=== PATIENT | male | born 1985 | race Two or more races ===

== ENCOUNTER 2022-05-10 22:06 | Observation (INO) ==
[2022-05-10] MEDS ORDERED: METOCLOPRAMIDE HCL INJ 5 MG/ML 2 ML VIAL IV STA (22:32)
[2022-05-10] MEDS ORDERED: diphenhydrAMINE 50 MG/ML VIAL IV STA (22:32)
[2022-05-10 22:54] LABS: Basophils # (auto) 0.04 K/uL (0-0.2); Basophils % (auto) 0.4 %; Eosinophils # (auto) 0.22 K/uL (0-0.5); Eosinophils % (auto) 2.2 %; Hematocrit (blood only) 44.1 % (42-52); Hemoglobin 16.1 g/dL (14.0-18.0); Immature Granulocytes # (auto) 0.03 K/uL (0.00-0.02); Immature Granulocytes % (auto) 0.3 %; Lymphocytes # (auto) 3.08 K/uL (1.2-3.4); Lymphocytes % (auto) 30.7 %; Mean Corpuscular Hemoglobin 32.9 pg (25-34); Mean Corpuscular Hgb Conc 36.5 g/dL (32-36); Mean Platelet Volume 9.8 fL (7.4-10.4); Monocytes # (auto) 0.39 K/uL (0.11-0.59); Monocytes % (auto) 3.9 %; Neutrophils # (auto) 6.28 K/uL (1.4-6.5); Neutrophils % (auto) 62.5 %; Platelet Count 298 K/uL (130-400); RDW Coefficient of Variation 12.2 % (11.5-14.5); RDW Standard Deviation 40.4 fL (36.4-46.3); White Blood Count 10.04 K/uL (4.8-10.8)
--- NOTE | 2022-05-10 23:23 | Emergency Department Note ---
History of Present Illness General Chief complaint: Headache Stated complaint: HEADACHE, INTO BACK OF HEAD Time Seen by Provider: 05/10/22 22:19 History of Present Illness Maximum Pain Intensity: 10 This 36-year-old Wallisian-speaking requesting his friend interpret presents to the ER complaining of new onset headache and an episode of difficulty speaking yesterday with no history of migraines Location: Head Quality: Throbbing Severity: Moderate Duration: Past day Timing: Started yesterday Context: Patient was concerned and came in Modifying factors: better with Tylenol; worse with activity Patient denies prior history of migraines. Patient states when he had a bad hea dache he had difficulty speaking. This is now since improved. No correlation with intercourse. Patient denies numbness, tingling, localized weakness. No family history of aneurysm or sudden . No trauma to the area. Home Medications Medication Instructions Recorded Confirmed Type acetaminophen 325 mg tablet 650 mg PO QID PRN 05/10/22 05/10/22 History (Tylenol) Allergies Allergy/AdvReac Type Severity Reaction Status Date / Time No Known Allergies Allergy Unverified 05/10/22 22:59 Past Med/Surg History Medical History No acute medical problems No pertinent family history Surgical History No pertinent past surgical history Social History Smoking Status: Never smoker Preferred Language: Azeri Feels Safe at Home: Yes Review of Systems A total of 10 systems reviewed and were otherwise negative Physical Exam Vital Signs Vital Signs - 24 hr 05/10/22 22:10 05/10/22 23:12 Temperature 36.5 C Temperature Source Temporal Artery Scan Pulse Rate 84 Pulse Rate [Apical] 76 Respiratory Rate 18 20 Respiratory Effort / Characteristics Non-Labored Spontaneous Non-Labored Respiratory Depth Normal Normal Respiratory Pattern Regular Blood Pressure 131/82 Blood Pressure [Right Arm] 136/86 Blood Pressure Mean 98 Blood Pressure Mean [Right Arm] 102 Blood Pressure Position Sitting Blood Pressure Position [Right Arm] Lying Pulse Oximetry 98 97 Oxygen Delivery Method Room Air Room Air Sepsis Recent Fever Within 48 Hours No Sepsis New/Unexplained Change in Mental Status No Sepsis Action Taken by Nursing No Action Required VITALS: Vitals are noted on the nurse's note and reviewed by myself. Vital signs stable. GENERAL: Pleasant male following commands speaking in full sentences, in no acute distress, nondiaphoretic, well-developed well-nourished. SKIN: The skin was without rashes, erythema, edema, or bruising. There is no tenting of the skin. Capillary reflex less than 2 seconds. HEAD: Normocephalic atraumatic. EARS: External auditory canals clear, tympanic membranes pearly mccabe without erythema or effusion bilaterally. EYES: Pupils equal round and reactive to light and accommodation. Conjunctivae without injection, sclerae without icterus. Extraocular movements intact. NOSE: Patent, turbinates without inflammation or discharge. No sinus tenderness. MOUTH: Mucous membranes moist. Pharynx without erythema or exudate. Uvula midline. Airway patent. Tongue does not deviate. NECK: Supple without nuchal rigidity. No lymphadenopathy. No thyromegaly. Cervical spine is nontender. No JVD. HEART: Regular rate and rhythm without murmurs gallops or rubs. LUNGS: Clear to auscultation bilaterally without wheezes, rales or rhonchi. No retractions or accessory muscle use. ABDOMEN: Positive bowel sounds x 4. Normal tympanic percussion. Soft, nontender, without masses or organomegaly. Mariscal sign negative. No guarding or rebound tenderness. No CVA tenderness MUSCULOSKELETAL: No muscle atrophy, erythema, or edema noted. NEURO: Patient was alert and oriented to person place and time. Normal sensation to light and sharp touch. No focal neurological deficits. Nontender over the occipital nerve outflow tracts. Course Administered Medications Discontinued Medications Diphenhydramine HCl (Diphenhydramine 50 Mg/Ml Vial) 25 mg IV NOW STA Stop: 05/10/22 22:33 Last Admin: 05/10/22 22:54 Dose: 25 mg Documented by: [id number] Ioversol (Optiray 320 125ml) 125 ml IV ONCE ONE Stop: 05/11/22 00:09 Last Admin: 05/11/22 00:08 Dose: 118 ml Documented by: [id number] Metoclopramide HCl (Metoclopramide Hcl Inj 5 Mg/Ml 2 Ml Vial) 10 mg IV NOW STA Stop: 05/10/22 22:33 Last Admin: 06/15/22 22:54 Dose: 10 mg Documented by: [id number] Medical Decision Making Medical Records Attestation: I reviewed the patient's medical records. Home Medications Current Medication List: was personally reviewed by me Laboratory Data Attestation: I reviewed the patient's lab results. Result diagrams: 05/10/22 22:44 05/10/22 22:44 Lab Results 05/10/22 05/10/22 05/10/22 Range/Units 22:44 22:44 23:18 WBC 10.04 (4.8-10.8) K/uL RBC 4.90 (4.7-6.1) M/uL Hgb 16.1 (14.0-18.0) g/dL Hct 44.1 (42-52) % MCV 90.0 (80-100) fL MCH 32.9 (25-34) pg MCHC 36.5 H (32-36) g/dL RDW Std Deviation 40.4 (36.4-46.3) fL RDW Coeff of Gaurang 12.2 (11.5-14.5) % Plt Count 298 (130-400) K/uL MPV 9.8 (7.4-10.4) fL Immature Gran % (Auto) 0.3 % Neut % (Auto) 62.5 % Lymph % (Auto) 30.7 % [place] % (Auto) 3.9 % Eos % (Auto) 2.2 % Baso % (Auto) 0.4 % Neut # (Auto) 6.28 (1.4-6.5) K/uL Lymph # (Auto) 3.08 (1.2-3.4) K/uL [place] # (Auto) 0.39 (0.11-0.59) K/uL Eos # (Auto) 0.22 (0-0.5) K/uL Baso # (Auto) 0.04 (0-0.2) K/uL Immature Gran # (Auto) 0.03 H (0.00-0.02) K/uL Sodium 136 (136-145) mmol/L Potassium 3.7 (3.5-5.1) mmol/L Chloride 104 (98-107) mmol/L Carbon Dioxide 25 (21-32) mmol/L Anion Gap 7 (3-11) BUN 12 (6-23) mg/dl Creatinine 0.81 (0.6-1.4) mg/dl Est Cr Clr Drug Dosing 123.7 ml/min Est GFR ( Amer) 130.7 ml/min Est GFR (Non-Af Amer) 112.7 ml/min BUN/Creatinine Ratio 14.8 (10-20) Glucose 119 H (70-99(Fasting)) mg/dl Calcium 8.9 (8.5-10.1) mg/dl Magnesium 2.1 (1.7-2.4) mg/dl Total Bilirubin 0.5 (0.2-1.0) mg/dl AST 54 H (13-39) U/L ALT 59 H (7-52) U/L Alkaline Phosphatase 69 (34-104) U/L Total Protein 7.8 (6.0-8.3) gm/dl Albumin 4.6 (3.4-5.0) gm/dl Globulin 3.2 (2.5-4.0) gm/dl Albumin/Globulin Ratio 1.4 (0.9-2) SARS-CoV-2 (PCR) NEGATIVE (Negative) Influenza Type A (PCR) Negative (Neg) Influenza Type B (PCR) Negative (Neg) RSV (RT-PCR) Negative (Neg) Imaging Data Attestation: I personally reviewed and interpreted this imaging study as follows: MDM Narrative Prior records/ancillary studies reviewed. Additional history obtained from friends and . Triage Nursing notes reviewed. The patient's history was concerning for headache. Differential diagnosis: Etiologies such as migraine headache, meningitis, sinusitis, CO exposure, ICH, SAH, infection, tumor, headache, sinus thrombosis, arterial dissection, as well as others were entertained. Physical examination findings: As above. Non-focal. ER treatment provided: Reglan, Benadryl On reassessment the patient felt better. Diagnostics interpreted by me: NIH: 0 The labs revealed No worrisome leukocytosis, mildly elevated LFTs. Patient is advised to follow-up with the family care doctor for this. He denies heavy alcohol use. Negative COVID Imaging studies: Preliminary Findings Only See Final Report For Complete Findings CT HEAD: No evidence of acute intracranial pathology. No comparisons. Radiologist: Edyta Jimenez MD ADDENDUM - Added by Edyta Jimenez MD on 05/11/2022 12:58 AM (-07:00) CTA HEAD: There is occlusion of the distal vertebral artery segment. The dominant left vertebral artery and basilar arteries are widely patent. The posterior inferior, superior cerebellar, and internal carotid, middle cerebral and anterior cerebral arteries are normal. There is a normal left posterior tumor can artery. 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 No comparisons. Radiologist: Edyta Jimenez MD Study ready at 00:20 and initial results transmitted at 00:57 Communications: Clear Time Type Notes Verify Receipt Addendum CTA NECK: There is occlusion of the distal right vertebral artery segment. The dominant left vertebral artery and basilar artery are widely patent. The visualized anterior circulation is normal. No comparisons. Radiologist: Edyta Jimenez MD Consultation: A consultation was placed with the hospitalist. The case was discussed and diagnostics were reviewed. The patient was evaluated in the ER for further treatment. This appears to be consistent with headache With abnormal CTA finding.. Patient was neurovascularly and neurologically intact. Medicine was consulted. He will be evaluated for admission. By the evaluation outlined above emergent etiologies such as meningitis, sinusitis, CO exposure, ICH, SAH, infection, temporal arteritis, tumor, sinus thrombosis, arterial dissection, as well as others were deemed relatively unlikely. The pt informed about the findings as listed above. All questions were answered and pleased with the treatment. The chart was completed utilizing mPATH voice recognition software. Grammatical errors, random word insertions, pronoun errors, and incomplete sentences are an occassional consequence of this system due to software limitations, ambient noise, and hardware issues. Any formal questions or concerns about the content, text, or information contained within the body of this dictation should be directly addressed to the physician certified pharmacist assistant for clarification. Impression & Plan Headache, Occlusion of vertebral artery Discharge Plan Visit Data Chief Complaint: Headache Stated Complaint: HEADACHE, INTO BACK OF HEAD ED Provider: Rogelio Sanchez ED Midlevel Provider: Tammie Coronel Discharge Problem: Headache, Occlusion of vertebral artery Patient Disposition: Admitted As Inpatient Condition: Good Forms Stand Alone Forms: [employer] Prescriptions Prescriptions: No Action acetaminophen [Tylenol] 325 mg Tablet 650 mg PO QID PRN (Reason: Pain) RF: 0 Referrals Referrals: PCP,NO [Primary Care Provider] - Discharge Problem: Headache Qualifiers: Headache type: unspecified Headache chronicity pattern: acute headache Intractability: not intractable Qualified Code(s): R51.9 - Headache, unspecified
[2022-05-10 23:33] LABS: BUN Creatinine Ratio 14.8 (10-20); Calcium 8.9 mg/dl (8.5-10.1); Creatinine Clr Calc Pharmacy 123.7 ml/min; Est GFR (African American) 130.7 ml/min; Est GFR (Non-African American) 112.7 ml/min; Potassium 3.7 mmol/L (3.5-5.1)
[2022-05-10 23:55] LABS: Albumin Globulin Ratio 1.4 (0.9-2); Albumin Level 4.6 gm/dl (3.4-5.0); Bilirubin,Total 0.5 mg/dl (0.2-1.0); Globulin 3.2 gm/dl (2.5-4.0); Magnesium 2.1 mg/dl (1.7-2.4); Total Protein 7.8 gm/dl (6.0-8.3)
[2022-05-11 00:01] LABS: Influenza A virus by PCR Negative (Neg); Influenza B virus by PCR Negative (Neg); RSV by PCR Negative (Neg); SARS CoV2 RNA(COVID-19) InHosp NEGATIVE (Negative)
[2022-05-11] MEDS ORDERED: OPTIRAY 320 125ml IV ONE (00:08)
--- NOTE | 2022-05-11 02:08 | History & Physical Report ---
Date of Service May 11, 2022 Assessment & Plan (1) Headache: Plan: Jl Lopez is a 36-year-old male with no known past medical history who present today due to headaches for one day. Headaches with episode of speech difficulty - Ddx including complex migraine vs TIA vs stroke - CTA H/N showing occlusion of distal vertebral artery segment; CT head without evidence of acute intracranial pathology - Will order lipid profile, A1c for risk reduction - MRI Brain to definitively rule out stroke - Neuro checks q2h - Can consider Neuro consult Problem drinking - Patient denies issues with alcohol use but was brought to ED due to alcohol intoxication in the past - Concern for episodes of bingeing and whether patient is being entirely truthful about amount of alcohol consumption on a daily basis - Will order at-risk AWSS protocol with Ativan PRN DVT ppx: SCDs, no chemoppx indicated Diet: Heart healthy Dispo: Observation to med tele CODE STATUS: Full (2) Occlusion of vertebral artery: (3) Problem drinking: History of Present Illness Primary Care Provider: NO PCP Jl Lopez is a 36-year-old male with no known past medical history who present today due to headaches since yesterday. The patient is Swedish-speaking only and I conducted the interview in Swedish with his and friend at bedside. He reports that starting yesterday he had severe headaches, up to about 7/10 in intensity. This was accompanied by an episode of difficulty speaking when the headache was at its worst. He did take Tylenol, which improved the severity fo his headache and his speech difficulty did improve as well. While the headaches have recurred intermittently since yesterday, his speech difficulty has not. He denies any n/v, weakness, numbness, confusion, CP, palp, cough, SOB, abd pain, fever, chills, joint aches, muscle aches, rashes, sick contacts. Does state that he drinks regularly and amounts can vary -- sometimes one drink and sometimes can have up to 12 beers in one night. Denies any such bingeing recently but did say he has had a drink or two in the past few days. In the ED, patient had CT head with no acute intracranial abnormality. CTA H/N did show: Occlusion of distal vertebral artery segment. The dominant left vertebral artery and basilar arteries are widely patent. The posterior inferior, superior cerebellar, and internal carotid, middle cerebral and anterior cerebral arteries are normal. There is a normal left posterior tumor can artery. 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 Lab work showed mild AST and ALT elevations to 54 and 59 respectively but was otherwise unremarkable. He did receive Reglan 10mg IV x1 and diphenhydramine 25mg IV x1, which resolved his MUÑOZ in the ED. Allergies Allergy/AdvReac Type Severity Reaction Status Date / Time No Known Allergies Allergy Unverified 05/10/22 22:59 Home Medications Medication Instructions Recorded Confirmed Type acetaminophen 325 mg tablet 650 mg PO QID PRN 05/10/22 05/10/22 History (Tylenol) atorvastatin 10 mg tablet 10 mg PO DAILY #30 tab 05/11/22 Rx Past Med/Surg History Medical History No acute medical problems No pertinent family history Surgical History No pertinent past surgical history Social History Smoking Status: Never smoker Second Hand Exposure: No; Hx Alcohol Use: Yes Alcohol type: other Preferred Language: Swedish Communication Ability: Effective Communication Tools: Other Loan Assistant Required: Yes Beliefs That Will Affect Care: None Current Living Situation: Spouse Feels Safe at Home: Yes Review of Systems Review of Systems: All systems reviewed & are unremarkable except as noted in HPI & below Physical Exam Physical Exam: GENERAL: A&Ox3. NAD. HEENT: PERRL, EOMI. Moist mucous membranes. NECK: No JVD. No lymphadenopathy. CHEST/LUNGS: CTAB A/P. No crackles, wheezes, rales, ronchi. HEART: RRR. No m/g/r. No carotid bruits. ABDOMEN: NT/ND, soft. BS+ x4 EXTREMITIES: No cyanosis, no clubbing, no edema SKIN: Warm and dry. No rashes or lesions. PSYCHIATRIC: Euthymic affect, no SI, no pressured speech, no hallucinations NEUROLOGIC: The patient has 5/5 strength x4 extremities. Sensation intact. DTR 2+ in all four extremities. CN II-XII intact. Results & Data Results & Data ([facility]) Vital Signs (Past 12 Hours) Vital Signs Temp Pulse Pulse Resp BP BP Pulse Ox 05/11/22 01:28 80 18 132/87 98 05/10/22 23:12 76 20 136/86 97 05/10/22 22:10 36.5 C 84 18 131/82 98 Code Status & VTE Plan VTE Prophylaxis Plan VTE Prophylaxis will be ordered: Yes Supervising Physician Co-Signing Physician Notes Patient seen and examined, chart reviewed, case discussed with Dr. Silvano Gaines and I agree with the assessment and plan as above. In brief, patient is a 36yo male presenting with headache. CTA with vertebral artery occlusion. Exam unremarkable. No neurological deficits +S1/S2, regular, no m/r/g Lungs CTA Abd soft, NT/ND Labs and images reviewed Assessment/Plan -MRI brain -Neuro checks -Check lipids and A1C -Remainder as above Resident Activity Tracking Resident Involvement: Resident Care Provided Care Provided: Adult Hospital Medicine (1) Headache Headache chronicity pattern: acute headache Headache type: unspecified Intractability: not intractable Qualified Code(s): R51.9 - Headache, unspecified
[2022-05-11] MEDS ORDERED: GADOBUTROL 65ML VIAL IV ONE (03:50)
[2022-05-11] MEDS ORDERED: LORazepam 1 MG TAB PO PRN (04:05)
[2022-05-11] MEDS ORDERED: ACETAMINOPHEN 325 MG TAB PO PRN (04:05)
[2022-05-11] MEDS ORDERED: ONDANSETRON INJ 2 MG/ML 2 ML VIAL IV PRN (04:05)
[2022-05-11 05:54] LABS: Chol HDL Ratio 5.2 (0-5)
[2022-05-11 07:06] LABS: Estimated Average Glucose 114 mg/dl; Hemoglobin A1C 5.6 % (4.5-5.6)
--- NOTE | 2022-05-11 07:22 | CT Scan Report ---
CT SCAN OF THE BRAIN WITHOUT IV CONTRAST CLINICAL HISTORY: Strokelike symptoms. COMPARISON STUDY: No priors. TECHNIQUE: Unenhanced axial CT scan of the brain is performed from the vertex to the skull base. A d ose lowering technique was utilized adhering to the principles of ALARA. FINDINGS: Brain parenchyma: The brain parenchyma is normal in appearance. There is no hemorrhage, mass effect, or evidence of acute territorial ischemia by CT criteria. Luevano-white matter differentiation is preser ladan. No extra-axial fluid collection is seen. Ventricles, sulci, cisterns: Normal in configuration. Intracranial vasculature: The visualized intracranial vasculature at the skull base is normal in appe arance. Calvarium: Unremarkable. Sinuses and mastoids: The visualized paranasal sinuses are clear. The mastoid air cells are well pneu matized. Orbits: The bony orbits are grossly intact. IMPRESSION: No acute intracranial abnormality. ACT 112: Negative or not required by law. Electronically signed by: Terrell Merino M.D. 05/11/2022 7:21 AM
--- NOTE | 2022-05-11 07:29 | CT Scan Report ---
CT angio head w con CLINICAL HISTORY: Stroke Like Symptoms . Posterior right head pain with weakness going down the right side. COMPARISON STUDY: CT brain without contrast from 05/10/2022 CT DOSE: TECHNIQUE: CT Angio of the brain was performed.followed by image post processing with coronal, and s agittal MIP reformats. Contrast Volume: Optiray 320, 118 ml FINDINGS: Vascular findings: There is normal enhancement within the internal carotid arteries bilaterally. The re is normal enhancement noted within the anterior, middle and posterior cerebral arteries. There is absence/occlusion of the right vertebral artery. There is a dominant left vertebral artery l eading to the basilar artery. Findings are most likely congenital in nature. Nonvascular findings: There is homogeneous attenuation of the brain parenchyma bilaterally. There is no evidence for an acute infarct or cerebral edema. IMPRESSION: 1. 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 2. There is a dominant left vertebral artery and normal basilar artery. 3. Otherwise, negative CTA of the brain. ACT 112: Negative or not required by law. Electronically signed by: Ernesto Harrison M.D. 05/11/2022 7:27 AM
--- NOTE | 2022-05-11 07:29 | Magnetic Resonance Report ---
MRI OF THE BRAIN COMBO CLINICAL HISTORY: Headache. Stroke like symptoms. COMPARISON STUDY: CT of the brain dated 05/10/2022. TECHNIQUE: MRI of the brain was performed utilizing various T1 and T2-weighted sequences in the axial , sagittal, and coronal planes. Contrast-enhanced sequences were acquired following the administratio n of 8 cc of Gadavist. FINDINGS: Brain parenchyma: The brain parenchyma is normal in appearance. There is no hemorrhage or mass effect . There is no restricted diffusion to suggest acute ischemia. No enhancing mass lesion is identified on the postcontrast images. Luevano-white matter differentiation is preserved. No extra-axial fluid david ection is seen. The cerebellar tonsils are normal in configuration. Developmental venous anomaly is i ncidentally noted in the right frontal lobe. Ventricles, sulci, and cisterns: Normal in configuration. Pituitary and sella: Unremarkable. Intracranial vasculature: The right vertebral artery flow-void is diminished at the skull base. The r emaining flow voids are patent. Orbits: The bony orbits are grossly intact. Orbital contents are normal in appearance. Sinuses and mastoids: Clear. Calvarium: Unremarkable. Cervical cord: Partially visualized cervical spinal cord is normal in morphology and signal intensity . IMPRESSION: 1. There is no hemorrhage, enhancing mass, or evidence of acute ischemia. 2. The right vertebral artery flow-void is diminished at the skull base and the vessel is at least pa rtially occluded. This was better assessed on yesterday's CT angiograms. ACT 112: Negative or not required by law. Electronically signed by: Terrell Merino M.D. 05/11/2022 7:28 AM
--- NOTE | 2022-05-11 07:36 | CT Scan Report ---
CT angio neck with con CLINICAL HISTORY: Stroke Like Symptoms . Posterior right head pain with weakness going down the right side. COMPARISON STUDY: CTA of the brain from 05/11/2022 CT DOSE: 1036.31 mGy.cm TECHNIQUE: CT Angio of the neck was performed.followed by image post processing with coronal, and sa gittal MIP reformats.. Stenosis assessment by NASCET criteria. Contrast Volume: Optiray 320, 118 ml FINDINGS: Vascular findings: Right common carotid artery: Patent without significant stenosis. Right internal carotid artery: Patent without significant stenosis. Right vertebral artery: There is a diminutive right vertebral artery when compared to the left. There is then occlusion of the vertebral artery distally at the level of the arch of C1. The presence of a dissection cannot be excluded. This could also possibly be congenital in nature. Left common carotid artery: Patent without significant stenosis. Left internal carotid artery: Patent without significant stenosis. Left vertebral artery: There is a dominant left vertebral artery which fills the basilar artery. The superior cerebellar arteries are symmetric bilaterally. Nonvascular findings: The parotid and submandibular salivary glands appear normal. There is no enlarged cervical adenopathy noted. The airway appears patent. The thyroid gland appears within normal limits. The lung apices ap pear within normal limits. Impression: 1. There is a diminutive right vertebral artery which is occluded at the level of the arch of C1 on t he right. The presence of dissection cannot be excluded. It is also possible that this is congenital in nature. 2. There is an associated dominant left vertebral artery which fills the basilar artery. The superior cerebellar branches of the basilar artery are symmetric. ACT 112: Negative or not required by law. Electronically signed by: Ernesto Harrison M.D. 05/11/2022 7:34 AM
[2022-05-11] MEDS ORDERED: MULTI-VITAMIN INFUSION 10 ML, THIAMINE HCL 100 MG, FOLIC ACID 1 MG in SODIUM CHLORIDE 0... IV ONE (08:15)
--- NOTE | 2022-05-11 09:56 | Neurology Consultation ---
Date of Consultation May 11, 2022 Assessment & Plan (1) Headache: (2) Occlusion of vertebral artery: 36-year-old male with resolved headache and associated word finding difficulty. Intact neurological examination. 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 This vascular finding is likely incidental. No history of strokelike symptoms localizing to the posterior circulation. No history of significant head or neck trauma or neck pain recently. No evidence of acute stroke on MRI. Good collateral flow from the left vertebral artery suggests chronicity of this finding. Patient does endorse a history of rather regular alcohol consumption, at least 5 alcoholic drinks the day prior to symptom onset. Excessive alcohol use may have been a trigger for his recent presentation. I do not have any further specific neurologic recommendations at this time. However, if patient is to be admitted to the Medical Center, would need to monitor for alcohol withdrawal symptoms. I do not see a reason to start aspirin or other antithrombotic medications at this point in time. Patient may need some counseling regarding alcohol consumption. History of Present Illness Reason for Consultation: headache, right vert occlusion Requesting Physician: Luis Alberto Marroquin MD Attending Physician: Vimal Lan MD History of Present Illness The patient is a 36-year old Kittitian-speaking male (drafter civil engineering services utilized) who presented to the emergency department last night for further evaluation of headache and an associated episode of speech difficulty. The patient is asymptomatic this morning. His headache was global and occurred without associated nausea or vomiting. He does not have a known history of migraine or other primary headache disorder. He denied experiencing any other associated neurologic symptoms such as vision loss, diplopia, dysphagia, focal weakness, clumsiness, or sensory loss. He denied any recent head injury or fall, no neck pain. No recent infection, illness, or vaccination. He does endorse a history of regular alcohol consumption and indicated that he consumed probably 5 drinks the day prior. He does not smoke or use chewing tobacco. He denied use of illicit drugs. He is originally from [facility], moved to [place] about 4 years ago, is employed as a business analytics specialist. A CT angiogram of the head and neck was completed which revealed a diminutive right vertebral artery which is occluded at the level of the arch of C1 on the right. A dissection cannot be excluded. The finding could also be congenital. Again, the patient denies any recent fall or neck pain. No history of stroke or TIA. A follow-up brain MRI was completed. The study was negative for acute or subacute stroke, no evidence of hemorrhage. Diminished right vertebral flow void was observed. Allergies Allergy/AdvReac Type Severity Reaction Status Date / Time No Known Allergies Allergy Unverified 05/10/22 22:59 Home Medications Medication Instructions Recorded Confirmed Type acetaminophen 325 mg tablet 650 mg PO QID PRN 05/10/22 05/10/22 History (Tylenol) Patient History Medical History No acute medical problems No pertinent family history Surgical History No pertinent past surgical history Social History Smoking Status: Never smoker Second Hand Exposure: No; Do You Dip or Chew Tobacco: No; Tobacco Cessation Education Requested by Patient: No Hx Alcohol Use: Yes Alcohol type: other Preferred Language: Kittitian Communication Ability: Effective Communication Tools: Other Lead Technical Architect Required: Yes Beliefs That Will Affect Care: None Current Living Situation: Spouse Other Information That Helps Us Care for You: No Feels Safe at Home: Yes Safety Concerns: Feels Safe At This Time and Afraid for Self Review of Systems Constitutional: no fever and no chills Eyes: no blind spots and no diplopia Ear, Nose, Mouth, Throat: no ear pain and no hearing loss Respiratory: no cough and no dyspnea Cardiovascular: no chest pain and no palpitations Gastrointestinal: no constipation and no diarrhea/loose stools Genitourinary: no urinary incontinence or no urinary urgency Musculoskeletal: no muscle weakness and no muscle atrophy Integumentary: no rash and no lesions Neurologic: as per Subjective / HPI Psychiatric: no behavioral changes, no depression, no abnormal sleep pattern and no anxiety Hematologic / Lymphatic: no easy bruising and no lymphadenopathy Exam (Neuro) Constitutional: well developed and well nourished; no acute distress Eyes: normal visual linares by confrontation, PERRL, normal accommodation and EOM intact bilaterally; no fundoscopic abnormality, no nystagmus and no papilledema Cardiovascular: Vessels: normal carotid upstroke; no carotid bruit Neurologic: Oriented to:: Person, Place and Time Memory: Short Term Intact and Remote Intact Attention: Span Intact and Concentration Intact Language: Naming Objects and Repeating Phrases Speech Fluency: negative Dysarthria Speech Aphasia: negative Aphasia Fund of Knowledge: Current Events, Past History and Vocabulary Cranial Nerves: Normal II (Visual linares full to confrontation, visual acuity normal), III, IV, (Pupils equal round reactive to light and accommodation, eye movements normal), V (Facial sensation intact), VII (There is no facial droop or weakness), VIII (Hearing intact), IX, X (Palate elevates to midline), XI (Shoulder shrug intact) and XII (Tongue protrudes to midline) Motor Strength: Normal Lower Extremities and Normal Upper Extremities; negative Pronator Drift Motor Tone: Normal Lower Extremities and Normal Upper Extremities Muscle Bulk/Involuntary Movements: No Involuntary Movements; negative Muscle Atrophy Sensation: Light Touch Intact, Pain/Temperature Intact, Vibration Intact and Proprioception Intact Coordination: Normal; negative Limited Balance, Dysdiadochokinesia, Finger-Nose Abnormal or Heel-Granger Abnormal Deep Tendon Reflexes: Rt Triceps: 2+, Lt Triceps: 2+, Rt Biceps: 2+, Lt Biceps: 2+, Rt Brachioradialis: 2+, Lt Brachioradialis: 2+, Rt Patellar: 2+, Lt Patellar: 2+, Rt Ankle: 2+ and Lt Ankle: 2+ Special Tests: negative Babinski Present Gait: Normal Station and Gait Results & Data ([facility]) Vital Signs (Past 12 Hours) Vital Signs Temp Pulse Pulse Resp BP BP Pulse Ox 05/11/22 07:13 64 18 128/89 99 05/11/22 07:02 36.8 C 72 20 115/76 98 05/11/22 05:00 64 14 121/78 97 05/11/22 04:00 74 20 120/91 97 05/11/22 03:00 73 15 122/75 97 05/11/22 02:00 81 20 121/88 97 05/11/22 01:28 80 18 132/87 98 05/10/22 23:12 76 20 136/86 97 05/10/22 22:10 36.5 C 84 18 131/82 98 Laboratory Results WBC 10.04, hemoglobin 16.1, hematocrit 44.1, MCV 90.0, platelet count 298, sodium 136, potassium 3.7, BUN 12, creatinine 0.81, glucose 119, hemoglobin A1c 5.6, calcium 8.9, magnesium 2.1, AST 54, ALT 59, triglycerides 227, cholesterol 172, LDL 94, VLDL 45, HDL [address] angiography of the head and neck is as described above in the HPI. MRI of th e brain was negative for acute or subacute infarct, and again, as described in the HPI. I reviewed the images as well as the radiologist interpretation of these tests and was able to appreciate these findings. Coding Level of Care Code 19341 Initial In Care Lvl 3 Diagnoses Headache R51.9 Headache chronicity pattern: acute headache Headache type: unspecified Intractability: not intractable Occlusion of vertebral artery I65.09 (1) Headache Headache chronicity pattern: acute headache Headache type: unspecified Intractability: not intractable Qualified Code(s): R51.9 - Headache, unspecified
--- NOTE | 2022-05-11 11:24 | Discharge Summary ---
Date of Service May 11, 2022 Admission HPI Per Admitting Provider Jl Lopez is a 36-year-old male with no known past medical history who present today due to headaches since yesterday. The patient is Brazilian-speaking only and I conducted the interview in Brazilian with his and friend at bedside. He reports that starting yesterday he had severe headaches, up to about 7/10 in intensity. This was accompanied by an episode of difficulty speaking when the headache was at its worst. He did take Tylenol, which improved the severity fo his headache and his speech difficulty did improve as well. While the headaches have recurred intermittently since yesterday, his speech difficulty has not. He denies any n/v, weakness, numbness, confusion, CP, palp, cough, SOB, abd pain, fever, chills, joint aches, muscle aches, rashes, sick contacts. Does state that he drinks regularly and amounts can vary -- sometimes one drink and sometimes can have up to 12 beers in one night. Denies any such bingeing recently but did say he has had a drink or two in the past few days. In the ED, patient had CT head with no acute intracranial abnormality. CTA H/N did show: Occlusion of distal vertebral artery segment. The dominant left vertebral artery and basilar arteries are widely patent. The posterior inferior, superior cerebellar, and internal carotid, middle cerebral and anterior cerebral arteries are normal. There is a normal left posterior tumor can artery. 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 Lab work showed mild AST and ALT elevations to 54 and 59 respectively but was otherwise unremarkable. He did receive Reglan 10mg IV x1 and diphenhydramine 25mg IV x1, which resolved his MUÑOZ in the ED. Admission Exam Per Admitting Provider GENERAL: A&Ox3. NAD. HEENT: PERRL, EOMI. Moist mucous membranes. NECK: No JVD. No lymphadenopathy. CHEST/LUNGS: CTAB A/P. No crackles, wheezes, rales, ronchi. HEART: RRR. No m/g/r. No carotid bruits. ABDOMEN: NT/ND, soft. BS+ x4 EXTREMITIES: No cyanosis, no clubbing, no edema SKIN: Warm and dry. No rashes or lesions. PSYCHIATRIC: Euthymic affect, no SI, no pressured speech, no hallucinations NEUROLOGIC: The patient has 5/5 strength x4 extremities. Sensation intact. DTR 2+ in all four extremities. CN II-XII intact. Principal Diagnosis Headache, word difficulty Discharge Exam Ipad used for wheel borer services for Brazilian speaking patient, wheel borer "Derian" General: WN/WD male sitting in bed, NAD HEENT: atramautic, normocephalic, mmm, trachea midline without deviation Resp: CTAB, no w/c/r, on RA CV: RRR, no m/r/g, no edema GI: +BS, nontender no wood MSK/Neuro: NVI, CN intact grossly, moves extremities, full strength UE/LE bilaterally, DTRs intact, pulses palpable Psych: AOx3, pleasant and cooperative, answering questions appropriately Discharge Data Allergies Allergy/AdvReac Type Severity Reaction Status Date / Time No Known Allergies Allergy Unverified 05/10/22 22:59 Consultations 05/11/22 01:26 ED Decision to Admit Stat 05/11/22 07:55 Consult Neurology Routine Ordered Studies Head CT 05/10/22 22:33 CT SCAN OF THE BRAIN WITHOUT IV CONTRAST CLINICAL HISTORY: Strokelike symptoms. COMPARISON STUDY: No priors. TECHNIQUE: Unenhanced axial CT scan of the brain is performed from the vertex to the skull base. A dose lowering technique was utilized adhering to the principles of ALARA. FINDINGS: Brain parenchyma: The brain parenchyma is normal in appearance. There is no hemorrhage, mass effect, or evidence of acute territorial ischemia by CT criteria. Luevano-white matter differentiation is preserved. No extra-axial fluid collection is seen. Ventricles, sulci, cisterns: Normal in configuration. Intracranial vasculature: The visualized intracranial vasculature at the skull base is normal in appearance. Calvarium: Unremarkable. Sinuses and mastoids: The visualized paranasal sinuses are clear. The mastoid air cells are well pneumatized. Orbits: The bony orbits are grossly intact. IMPRESSION: No acute intracranial abnormality. ACT 112: Negative or not required by law. Electronically signed by: Terrell Merino M.D. 05/11/2022 7:21 AM Head CTA 05/10/22 22:33 CT angio head w con CLINICAL HISTORY: Stroke Like Symptoms . Posterior right head pain with weakness going down the right side. COMPARISON STUDY: CT brain without contrast from 05/10/2022 CT DOSE: TECHNIQUE: CT Angio of the brain was performed.followed by image post processing with coronal, and sagittal MIP reformats. Contrast Volume: Optiray 320, 118 ml FINDINGS: Vascular findings: There is normal enhancement within the internal carotid arteries bilaterally. There is normal enhancement noted within the anterior, middle and posterior cerebral arteries. There is absence/occlusion of the right vertebral artery. There is a dominant left vertebral artery leading to the basilar artery. Findings are most likely congenital in nature. Nonvascular findings: There is homogeneous attenuation of the brain parenchyma bilaterally. There is no evidence for an acute infarct or cerebral edema. IMPRESSION: 1. 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 2. There is a dominant left vertebral artery and normal basilar artery. 3. Otherwise, negative CTA of the brain. ACT 112: Negative or not required by law. Electronically signed by: Ernesto Harrison M.D. 05/11/2022 7:27 AM Neck CTA 05/10/22 22:33 CT angio neck with con CLINICAL HISTORY: Stroke Like Symptoms . Posterior right head pain with weakness going down the right side. COMPARISON STUDY: CTA of the brain from 05/11/2022 CT DOSE: 1036.31 mGy.cm TECHNIQUE: CT Angio of the neck was performed.followed by image post processing with coronal, and sagittal MIP reformats.. Stenosis assessment by NASCET criteria. Contrast Volume: Optiray 320, 118 ml FINDINGS: Vascular findings: Right common carotid artery: Patent without significant stenosis. Right internal carotid artery: Patent without significant stenosis. Right vertebral artery: There is a diminutive right vertebral artery when compared to the left. There is then occlusion of the vertebral artery distally at the level of the arch of C1. The presence of a dissection cannot be excluded. This could also possibly be congenital in nature. Left common carotid artery: Patent without significant stenosis. Left internal carotid artery: Patent without significant stenosis. Left vertebral artery: There is a dominant left vertebral artery which fills the basilar artery. The superior cerebellar arteries are symmetric bilaterally. Nonvascular findings: The parotid and submandibular salivary glands appear normal. There is no enlarged cervical adenopathy noted. The airway appears patent. The thyroid gland appears within normal limits. The lung apices appear within normal limits. Impression: 1. There is a diminutive right vertebral artery which is occluded at the level of the arch of C1 on the right. The presence of dissection cannot be excluded. It is also possible that this is congenital in nature. 2. There is an associated dominant left vertebral artery which fills the basilar artery. The superior cerebellar branches of the basilar artery are symmetric. ACT 112: Negative or not required by law. Electronically signed by: Ernesto Harrison M.D. 05/11/2022 7:34 AM Brain MRI 05/11/22 02:00 MRI OF THE BRAIN COMBO CLINICAL HISTORY: Headache. Stroke like symptoms. COMPARISON STUDY: CT of the brain dated 05/10/2022. TECHNIQUE: MRI of the brain was performed utilizing various T1 and T2-weighted sequences in the axial, sagittal, and coronal planes. Contrast-enhanced sequences were acquired following the administration of 8 cc of Gadavist. FINDINGS: Brain parenchyma: The brain parenchyma is normal in appearance. There is no hemorrhage or mass effect. There is no restricted diffusion to suggest acute ischemia. No enhancing mass lesion is identified on the postcontrast images. Luevano-white matter differentiation is preserved. No extra-axial fluid collection is seen. The cerebellar tonsils are normal in configuration. Developmental venous anomaly is incidentally noted in the right frontal lobe. Ventricles, sulci, and cisterns: Normal in configuration. Pituitary and sella: Unremarkable. Intracranial vasculature: The right vertebral artery flow-void is diminished at the skull base. The remaining flow voids are patent. Orbits: The bony orbits are grossly intact. Orbital contents are normal in appearance. Sinuses and mastoids: Clear. Calvarium: Unremarkable. Cervical cord: Partially visualized cervical spinal cord is normal in morphology and signal intensity. IMPRESSION: 1. There is no hemorrhage, enhancing mass, or evidence of acute ischemia. 2. The right vertebral artery flow-void is diminished at the skull base and the vessel is at least partially occluded. This was better assessed on yesterday's CT angiograms. ACT 112: Negative or not required by law. Electronically signed by: Terrell Merino M.D. 05/11/2022 7:28 AM Hospital Course (1) Headache: (2) Occlusion of vertebral artery: (1) Headache: (2) Occlusion of vertebral artery: (3) Problem drinking: Jl Lopez is a 36-year-old male with no known past medical history who presented due to headaches for one day with reports of difficulty speaking x 1 day drinks 4-5 saunders daily - Ddx including complex migraine vs TIA vs stroke - CTA H/N showing occlusion of distal vertebral artery segment; CT head without evidence of acute intracranial pathology - MRI Brain to definitively rule out stroke -- NEGATIVE, good collateral flow fr om L vertebral artery suggests chronicity of this finding. - Neuro checks q2h ordered Neuro consult -- no acute findings, stable for discharge Resolution of headache with Tylenol/Zofran/Benadryl and Reglan A1c wnl Lipids with elevated TRG/cholesterol not ideal --> discussed with wheel borer and planned atorvastatin 10mg HS at d/c, low sodium diet/dietary modifications and avoidance of alcohol No family hx of CO/CVA per discussion with wheel borer/patient Rec BP monitoring at home/f/U CVIM for continued monitoring and recs to start HTN agent if elevated in outpatient setting Regarding alcohol Use -- Daily drinker, 4-5 beers daily Denies issues with drinking (but was brought in for alcohol intoxication in the past) AWSS ordered/ativan prn (did not need to use), VSS no tachycardia/fever/etc No evidence for DTs Given banana bag prior to discharge (BP higher elevated prior, 115/76 prior to discharge after hydration )-- Encouraged to cut back on drinking DVT ppx: SCDs, no chemoppx indicated and ambulating in room without issue Wanting to be discharged and no further headache or neurological symptoms at this time and was discharged home. F/u CVIM recommended and # provided Total Time Total Time Spent Total Time Spent (In Minutes): 35 Discharge Plan Discharge Items Patient Disposition: Home - Self-Care Reason For Visit: MUÑOZ W DIFFICULTY SPEAKING Discharge Diagnosis: Headache Condition on Discharge: Good Activity: Resume your previous activity Non-emergency contact: Primary Care Provider Call non-emergency contact if: you have any medication questions, your symptoms worsen and your pain is concerning for you Follow-up/Referrals: [facility],Medicine [Primary Care Provider] - (7-10 days) Diet: Heart Healthy Addtl Attending Provider Instructions: Arabic: You have been hospitalized for a headache. This has been treated with medications to help resolve your issue. Imaging did NOT show any evidence for a stroke and you were seen by Neurology. We would recommend avoiding excessive alcohol as this can cause a headache. You had your A1c checked (to monitor blood sugars) and this was normal. You did have elevations in your triglycerides and cholesterol and you should monitor/adjust your diet to decrease these levels. I did sent a prescription for atorvastatin 10mg daily to take to help decrease these levels at night. You should follow up with primary care in the next 7-10 days to monitor your progress. Please return to the emergency department with any increased symptoms or symptoms concerning for you. You can use Tylenol three times daily as needed for headache but cautious use with ibuprofen while drinking as this could increased risk of bleeding. I would recommend getting a blood pressure cuff and monitoring your blood pressures. If they are still elevated above 160 for the top number or above 70- 80s for the bottom number you may benefit from blood pressure medications as well. Please return to ER with any increased symptoms or symptoms worrying for you. Brazilian: Usted muñoz sido hospitalizado por un dolor de tesfaye. [place] se muñoz tratado con medicamentos para ayudar a resolver villanueva problema. Las imgenes NO mostraron ninguna evidencia de un accidente cerebrovascular y usted fue visto por Neurology. Recomendamos evitar el exceso de alcohol, ya que esto puede causar dolor de tesfaye. Le revisaron la A1c (para controlar el azcar en la manuel) y esto fue normal. Usted tuvo elevaciones en bartolome triglicridos y colesterol y debe monitorear / ajustar villanueva dieta para disminuir estos niveles. Envi deonna receta de atorvastatina 10 mg diarios para louis para ayudar a disminuir estos niveles. Debe hacer un seguimiento con atencin primaria en los prximos 7-10 castro para monitorear villanueva progreso. Recomendara obtener un manguito de presin arterial y controlar villanueva presin arterial. Si todava estn elevados por encima de 160 para el nmero superior o por encima de 70-80 para el nmero inferior, tambin puede beneficiarse de los medicamentos para la presin arterial. Por favor, regrese al departamento de emergencias con cualquier aumento de sntomas o sntomas preocupantes para usted. Puede usar Tylenol jennifer veces al da segn sea necesario para el dolor de tesfaye, lynette use con precaucin con ibuprofeno mientras taran, ya que esto podra aumentar el riesgo de sangrado. Por favor llame a los voluntarios del centro para la medicina para la randi de s eguimiento en [phone] Pending Studies at Discharge: No Stand-Alone Forms: [facility], Smoking Cessation Medications and DC Order Prescriptions: New atorvastatin 10 mg tablet 10 mg PO DAILY Qty: 30 RF: 0 Continued acetaminophen [Tylenol] 325 mg Tablet 650 mg PO QID PRN (Reason: Pain) RF: 0 Discharge Orders: Discharge Order (Routine); Ordered 05/11/22 Ordered By: Renetta Stoddard Admission Data Admit Date/Time: 05/11/22 02:00 Attending Provider: Vimal Lan Admit Provider: Luis Alberto Marroquin Primary Care Provider: [facility],Medicine Other Providers: Vimal Lan ; Geremias Vyas Other Interventions: Discharge Summary Assessment (RN) Last Done: 05/11/22 12:34 Coding Level of Care Code 52824 OBS Care - Discharge Diagnoses Headache R51.9 Headache chronicity pattern: acute headache Headache type: unspecified Intractability: not intractable Occlusion of vertebral artery I65.09
--- NOTE | 2022-05-11 18:46 | Billing Data ---
Date of Service May 11, 2022 Coding Level of Care Code INT OBSERVATION CARE 50M LVL 2
== END 2022-05-11 12:25 | disposition home or self-care (01) ==
LOC: EDINP 22:06 → ED 22:06 → SUATTDRO 05-11 02:00 → EDINP 05-11 04:14